=== PATIENT | female | born 1995 | race Caucasian/White ===

== ENCOUNTER 2020-07-26 15:41 | Outpatient (CLI) | payer MEDICAID | END 2020-07-26 15:42 | disposition home or self-care (01) | LOC: LAB 15:41 | PROVIDERS: ATTEND Nurse Practitioner Obstetrics & Gynecology | DX: Z32.02 Encounter for pregnancy test, result negative (principal) | CPT/HCPCS: 36415; 84702 ==

== ENCOUNTER 2020-12-11 15:53 | Outpatient (CLI) | payer MEDICAID ==
--- NOTE | 2020-12-11 16:29 | XRAY Report ---
PROCEDURE: Hand 2 View RT INDICATIONS: HAND JOIN PAIN,RIGHT TECHNIQUE: Tube views of the hand(s) acquired. COMPARISON: None FINDINGS: Bones: No fractures or dislocations. No suspicious bony lesions. Soft tissues: No suspicious soft tissue calcifications. IMPRESSION: Normal study. Reviewed by: Jony Neri MD on 12/11/2020 4:28 PM [facility] Approved by: Jony Neri MD on 12/11/2020 4:28 PM [facility] Station ID: [id number]
== END 2020-12-11 15:54 | disposition home or self-care (01) ==
LOC: DI.S 15:53
PROVIDERS: ATTEND Registered Nurse
DX: M79.641 Pain in right hand (principal)

== ENCOUNTER 2021-02-28 15:18 | Outpatient (CLI) | payer MEDICAID ==
[2021-02-28 20:15] LABS: BASOPHILS # (AUTO) 0.1 10^3/uL (0.0-0.1); BASOPHILS % (AUTO) 0.9 %; EOSINOPHILS # (AUTO) 0.1 10^3/uL (0.0-0.7); EOSINOPHILS % (AUTO) 1.5 %; HGB - HEMOGLOBIN 14.1 g/dL (12.0-16.0); LYMPHOCYTES # (AUTO) 2.7 10^3/uL (1.5-3.5); MEAN CORPUSCULAR HEMOGLOBIN 29.2 pg (27.0-31.0); MEAN CORPUSCULAR HGB CONC 33.6 g/dL (32.0-36.0); MEAN PLATELET VOLUME 10.5 fL (7.9-10.8); MONOCYTES # (AUTO) 0.7 10^3/uL (0.0-1.0); MONOCYTES % (AUTO) 7.8 %; NEUTROPHILS % (AUTO) 58.6 %; PLT - PLATELET COUNT 269 10^3/uL (130-450); RED BLOOD COUNT 4.83 10^6/uL (4.20-5.40); RED CELL DISTRIBUTION WIDTH 12.5 % (12.0-15.0); WHITE BLOOD COUNT 8.5 x10^3/uL (4.8-10.8)
[2021-02-28 20:26] LABS: ALBUMIN 4.7 g/dL (3.2-5.5); ALBUMIN/GLOBULIN RATIO 1.3 (1.0-2.2); BILIRUBIN,TOTAL 0.8 mg/dL (0.2-1.0); CALCIUM 9.6 mg/dL (8.5-10.3); CREATININE 0.9 mg/dL (0.4-1.0); POTASSIUM 3.9 mmol/L (3.5-5.0); TOTAL PROTEIN 8.2 g/dL (6.7-8.2)
[2021-02-28 20:43] LABS: THYROID STIMULATING HORMONE 0.74 uIU/mL (0.34-5.60)
[2021-02-28 21:19] LABS: HCG,QUALITATIVE BLOOD NEGATIVE
== END 2021-02-28 15:19 | disposition home or self-care (01) ==
LOC: LAB.S 15:18
PROVIDERS: ATTEND Advanced Practice Midwife
DX: Z32.01 Encounter for pregnancy test, result positive (principal)
CPT/HCPCS: 36415; 80053; 84443; 84703; 85025

== ENCOUNTER 2021-07-20 08:00 | Outpatient (CLI) | payer MEDICAID ==
[2021-07-20 18:57] LABS: BILIRUBIN,URINE NEGATIVE (NEGATIVE); GLUCOSE, URINE (UA) NEGATIVE (NEGATIVE); KETONES,URINE (UA) NEGATIVE (NEGATIVE); LEUKOCYTE ESTERASE, URINE NEGATIVE (NEGATIVE); NITRITE,URINE NEGATIVE (NEGATIVE); OCCULT BLOOD,URINE NEGATIVE (NEGATIVE); PH,URINE 6.5 PH (5.0-7.5); PROTEIN,URINE NEGATIVE (NEGATIVE); UROBILINOGEN,URINE 0.2 (NORMAL) E.U./dL (NORMAL)
[2021-07-20 19:40] LABS: CLARITY,URINE CLEAR (CLEAR); WBC,URINE 0-3 /HPF (0-5)
[2021-07-20 19:41] LABS: BACTERIA,URINE None Seen /HPF (None Seen); RBC,URINE None Seen /HPF (0-5); SQUAMOUS EPITHELIAL CELL,UR RARE Squamous (<= Few)
[2021-07-20 23:38] LABS: CHLAMYDIA TRACHOMATIS DNA NEGATIVE (NEGATIVE); NEISSERIA GONORRHOEAE DNA NEGATIVE (NEGATIVE); TRICHOMONAS VAGINALIS DNA NEGATIVE (NEGATIVE)
== END 2021-07-20 23:59 | disposition home or self-care (01) ==
LOC: LAB.WC 08:00
PROVIDERS: ATTEND Obstetrics & Gynecology
DX: R10.2 Pelvic and perineal pain (principal)
CPT/HCPCS: 81001; 87086; 87491; 87591; 87661

== ENCOUNTER 2021-08-02 16:00 | Outpatient (CLI) | payer MEDICAID ==
--- NOTE | 2021-08-02 18:14 | Ultrasound Report ---
PROCEDURE: Pelvic w/Transvaginal INDICATIONS: PELVIC PAIN TECHNIQUE: Real-time scanning was performed of the pelvic organs, with image documentation. Additional endovagi nal scanning was necessary due to incomplete visualization of the adnexal and endometrial structures by transabdominal scanning. COMPARISON: None. FINDINGS: No pathologic free abdominal or pelvic fluid. Uterus: Uterus is normal in size at 7.8 x 4.2 x 5.1 cm. The endometrium measures 12 mm in combined thickness. Nabothian cysts are incidentally noted. Ovaries: The right ovary measures 3.2 x 2.5 x 4.2 cm and the left ovary measures 2.9 x 1.9 x 3 cm. W ithin the right ovary, there is a complex cyst seen that measures up to 17 mm. No significant ovarian additional abnormalities are seen. No adnexal masses are seen. IMPRESSION: Complex cyst seen involving the right ovary that measures up to 17 mm, which is likely related to hem orrhagic cyst. If clinically appropriate, please consider a short-term follow-up ultrasound in 6 wee az to ensure resolution/improvement. Reviewed by: Oleg Levy MD on 08/02/2021 5:13 PM [facility] Approved by: Oleg Leyv MD on 08/02/2021 5:13 PM [facility] Station ID: [id number]
== END 2021-08-02 16:01 | disposition home or self-care (01) ==
LOC: DI 16:00
PROVIDERS: ATTEND Obstetrics & Gynecology
DX: R10.2 Pelvic and perineal pain (principal); N83.291 Other ovarian cyst, right side

== ENCOUNTER 2022-05-01 12:31 | Outpatient (CLI) | payer MEDICAID ==
[2022-05-01 14:33] LABS: BASOPHILS % (AUTO) 0.5 %; EOSINOPHILS # (AUTO) 0.1 10^3/uL (0.0-0.7); EOSINOPHILS % (AUTO) 1.4 %; HGB - HEMOGLOBIN 12.8 g/dL (12.0-16.0); LYMPHOCYTES # (AUTO) 1.2 10^3/uL (1.5-3.5); LYMPHOCYTES % (AUTO) 18.8 %; MEAN CORPUSCULAR HEMOGLOBIN 29.4 pg (27.0-31.0); MEAN CORPUSCULAR HGB CONC 33.7 g/dL (32.0-36.0); MEAN CORPUSCULAR VOLUME 87.2 fL (81.0-99.0); MONOCYTES # (AUTO) 0.7 10^3/uL (0.0-1.0); MONOCYTES % (AUTO) 11.1 %; NEUTROPHILS # (AUTO) 4.4 10^3/uL (1.5-6.6); NEUTROPHILS % (AUTO) 67.6 %; PLT - PLATELET COUNT 232 10^3/uL (130-450); RED BLOOD COUNT 4.36 10^6/uL (4.20-5.40); RED CELL DISTRIBUTION WIDTH 13.3 % (12.0-15.0); WHITE BLOOD COUNT 6.5 x10^3/uL (4.8-10.8)
[2022-05-02 03:08] LABS: RPR Non Reactive (Non Reactive)
[2022-05-02 04:08] LABS: HBsAG SCREEN Negative (Negative); HCV AB <0.1 s/co ratio (0.0-0.9); HIV SCREEN 4TH GENERATION Non Reactive (Non Reactive)
[2022-05-02 07:10] LABS: VARICELLA-ZOSTER AB IGG 378 index (Immune >165)
== END 2022-05-01 12:32 | disposition home or self-care (01) ==
LOC: LAB.S 12:31
PROVIDERS: ATTEND Nurse Practitioner Obstetrics & Gynecology
DX: Z36.89 Encounter for other specified antenatal screening (principal)
CPT/HCPCS: 36415; 85025; 86592; 86762; 86787; 86803; 86850; 86900; 86901; 87340; 87389

== ENCOUNTER 2022-07-02 15:44 | Outpatient (CLI) | payer MEDICAID ==
--- NOTE | 2022-07-03 10:24 | Ultrasound Report ---
PROCEDURE: OB Detailed Eval INDICATIONS: SUPERVISION OF OUTSIDE/PRIOR DATING DATA: Last menstrual period (LMP): 02/14/2021. LMP-based estimated date of delivery (FREDY): To 923. First dating scan (date and location): Outside institution, 04/23/2022. Estimated date of delivery (FREDY) from first dating scan: 11/25/2022. The below data below was generated using the first trimester ultrasound FREDY of 11/25/2022 TECHNIQUE: Real-time scanning was performed of the fetus, with image documentation and biometric measurements. Endovaginal scanning: Not performed COMPARISON: None. FINDINGS: General: A single living intrauterine gestation is present. Presentation: Vertex Placenta: Placental position is anterior, without previa. Amniotic fluid index: 11.7 cm, deepest pocket is 3.3 cm, normal for gestational age. heart rate: 138 beats per minute. Maternal cervical canal: Closed and 4.3 cm long; normal length is 2.5 cm or more. biometrics: Biparietal diameter: 4.5 cm, 19 weeks, 5 days Head circumference: 17.0 cm, 19 weeks, 4 days Abdominal circumference: 14.2 cm, 19 weeks, 4 days Femur length: 3.1 cm, 19 weeks, 4 days Estimated gestational age from initial scan: 19 weeks, 1 day Composite gestational age from present scan: 19 weeks, 4 days Estimated weight and percentile: 300 g, 71st percentile Measurement variability in biometric dating: +/- 10 days from 12-20 weeks gestation, +/- 2 weeks from 20-30 weeks gestation, +/- 3 weeks at 30 weeks gestation or later. Anatomic survey: Neuro: Ventricles are normal at less than 10 mm. Cisterna magna is normal at 3-11 mm. Cerebellum i s normal in size and morphology. Nuchal skin fold: Normal at less than 6 mm between 14 and 20 weeks gestational age. Face: The orbits, nose, and lips appear normal. The facial profile was not seen due to position . Spine: No evidence for spina bifida. Heart: 4-chambered heart is present. Cardiac outflow tracts were not well seen. Diaphragm: Diaphragm is intact. Stomach: Left-sided stomach is present. Kidneys: No hydronephrosis. Normal is less than 5 mm in 2nd trimester, less than 7 mm in 3rd trimester. Cord: 3 vessel cord has orthotopic insertion. Bladder: Normal in size. Extremities: All 4 extremities are visualized. IMPRESSION: 1. Single living intrauterine with appropriate growth compared to the expected gestational age. 2. Closed cervix and normal amniotic fluid volume. 3. Due to position, facial profile and cardiac outflow tracts were not well seen. Follow-up is recommended. Otherwise normal anatomy. Reviewed by: Indu Freeman MD on 07/03/2022 10:23 AM PDT Approved by: Indu Freeman MD on 07/03/2022 10:23 AM PDT Station ID: [id number]
== END 2022-07-02 15:45 | disposition home or self-care (01) ==
LOC: DI 15:44
PROVIDERS: ATTEND Nurse Practitioner Obstetrics & Gynecology
DX: Z34.02 Encounter for supervision of normal first pregnancy, second trimester (principal); Z36.89 Encounter for other specified antenatal screening

== ENCOUNTER 2022-07-17 13:26 | Outpatient (CLI) | payer MEDICAID ==
--- NOTE | 2022-07-17 16:38 | Ultrasound Report ---
PROCEDURE: OB F/U or Repeat INDICATIONS: SUPERVISION OF OUTSIDE/PRIOR DATING DATA: Last menstrual period (LMP): 02/14/2022. LMP-based estimated date of delivery (FREDY): 11/21/2022. First dating scan (date and location): 07/02/2022. Estimated date of delivery (FREDY) from first dating scan: 11/25/2022. The below data below was generated using the ultrasound FREDY of 11/25/2022 TECHNIQUE: Real-time scanning was performed of the fetus, with image documentation. Endovaginal scanning: Not performed. COMPARISON: OB ultrasound 07/02/2022 FINDINGS: General: A single living intrauterine gestation is present. Presentation: Breech Placenta: Placental position is anterior, without previa. Amniotic fluid index: 15.8 cm, normal for gestational age. Single deepest vertical fluid pocket is 4.6 cm. heart rate: 137 beats per minute. Maternal cervical canal: 4.6 cm long; normal length is 2.5 cm or more. Estimated gestational age from initial scan: 21 weeks 2 days. Other: facial profile as well as right and left ventricular outflow tracks are visualized and a re within normal limits. IMPRESSION: 1.Single live intrauterine . 2.Right and left ventricular outflow tracts and facial profile are within normal limits. 3.Amniotic fluid index is within normal limits. Reviewed by: Jonathan Lundberg MD on 07/17/2022 4:37 PM PDT Approved by: Jonathan Lundberg MD on 07/17/2022 4:37 PM PDT Station ID: [id number]
== END 2022-07-17 13:27 | disposition home or self-care (01) ==
LOC: DI 13:26
PROVIDERS: ATTEND Nurse Practitioner Obstetrics & Gynecology
DX: Z36.89 Encounter for other specified antenatal screening (principal)

== ENCOUNTER 2022-08-08 15:05 | Outpatient (CLI) | payer MEDICAID ==
[2022-08-08 16:15] LABS: HCT - HEMATOCRIT 33.2 % (37.0-47.0); HGB - HEMOGLOBIN 10.7 g/dL (12.0-16.0); MEAN CORPUSCULAR HGB CONC 32.2 g/dL (32.0-36.0); MEAN PLATELET VOLUME 9.5 fL (7.9-10.8); RED BLOOD COUNT 3.69 10^6/uL (4.20-5.40); RED CELL DISTRIBUTION WIDTH 12.7 % (12.0-15.0); WHITE BLOOD COUNT 11.1 x10^3/uL (4.8-10.8)
== END 2022-08-08 15:06 | disposition home or self-care (01) ==
LOC: LAB 15:05
PROVIDERS: ATTEND Nurse Practitioner Obstetrics & Gynecology
DX: Z36.9 Encounter for antenatal screening, unspecified (principal)
CPT/HCPCS: 36415; 82950; 85027

== ENCOUNTER 2022-09-25 22:17 | Outpatient (CLI) | payer MEDICAID ==
[2022-09-25 22:48] VITALS: BP 105/55
[2022-09-25 23:34] LABS: BILIRUBIN,URINE NEGATIVE (NEGATIVE); GLUCOSE, URINE (UA) NEGATIVE (NEGATIVE); KETONES,URINE (UA) NEGATIVE (NEGATIVE); LEUKOCYTE ESTERASE, URINE NEGATIVE (NEGATIVE); NITRITE,URINE NEGATIVE (NEGATIVE); OCCULT BLOOD,URINE NEGATIVE (NEGATIVE); PH,URINE 6.5 PH (5.0-7.5); PROTEIN,URINE NEGATIVE (NEGATIVE); UROBILINOGEN,URINE 0.2 (NORMAL) E.U./dL (NORMAL)
[2022-09-25 23:37] LABS: CLARITY,URINE CLEAR (CLEAR)
[2022-09-25 23:39] LABS: BACTERIA,URINE Rare /HPF (None Seen); RBC,URINE 0-5 /HPF (0-5); SQUAMOUS EPITHELIAL CELL,UR RARE Squamous (<= Few); WBC,URINE 0-3 /HPF (0-5)
[2022-09-25] MEDS ORDERED: ACETAMINOPHEN 500 MG TABLET PO SCH (23:45)
--- NOTE | 2022-09-27 18:25 | PROVIDER PROGRESS NOTE ---
- HPI Chief Complaint: Pain, non-labor Current : Current EDU 11/21/22 Gestation 31 Weeks and 6 Days 2 Para 0 Vital Signs Temperature 36.8 C 09/25/22 22:44 Heart Rate 88 09/25/22 22:44 Respiratory Rate 18 09/25/22 22:44 Blood Pressure 105/55 L 09/25/22 22:44 Temperature 36.8 C 09/25/22 22:44 Heart Rate 88 09/25/22 22:44 Respiratory Rate 18 09/25/22 22:44 Blood Pressure 105/55 L 09/25/22 22:44 O2 Saturation If not protocol: Oxygen Flow, liters/minute - Procedures OB Procedure Performed: NST Diagnosis/Indication for NST: Other NST Procedure: NST Procedure Start Date 09/25/22 Start Time 22:29 Stop Time 23:00 Vibroacoustic Stimulation Used No Patient States Movement Yes - Plan Plan: Kirsten presents today with c/o sharp abdominal pain every 4 minutes lasting 3 minutes at a time. She states the pain is in various places over her abdomen but is mostly localized over her pubic bone. She denies vaginal bleeding or leakage of fluid and reports +FM. She denies that her abdomen feels tightened when the pain occurs. She reports normal BMs and denies constipation or diarrhea. She denies any additions to her diet or eating anything new. She denies urinary symptoms. She denies abnormal vaignal discharge. NST performed 09/25/2022 NST read 09/25/2022 NST reactive. FHR baselin 140s, moderate variability, + accels, no decels No contractions appreciated via tocometry Uterus palpated with appreciated pain and remains soft throughout. Noted movement audible on monitor when pt appreciates pain. UA collected- negative Encouraged 1000mg tylenol PO q 8 hrs as needed for pain. Recommended maternity support belt. Reviewed warning s/sx and when to present. Pt verbalized understanding and agrees to above plan. SHe denies further questions or concerns at this time. Pt was discharged home with precautions. FINAL DIAGNOSIS: Pelvic pain (10.2)
== END 2022-09-25 23:58 | disposition home or self-care (01) ==
LOC: WFO 22:17 → FBP 22:21 → WFO 23:58
PROVIDERS: ATTEND Nurse Practitioner Obstetrics & Gynecology
DX: O99.891 Other specified diseases and conditions complicating pregnancy (principal); R10.2 Pelvic and perineal pain; Z3A.31 31 weeks gestation of pregnancy
CPT/HCPCS: 59025; 81001; 99214; A9270; 87086

== ENCOUNTER 2022-09-30 16:01 | Outpatient (CLI) | payer MEDICAID ==
--- NOTE | 2022-10-01 10:00 | Ultrasound Report ---
PROCEDURE: OB F/U or Repeat INDICATIONS: UTERINE SIZE DATE DISCREPANCY OUTSIDE/PRIOR DATING DATA: Last menstrual period (LMP): 02/14/2022. LMP-based estimated date of delivery (FREDY): 11/21/2022. First dating scan (date and location): 07/02/2022. Estimated date of delivery (FREDY) from first dating scan: 11/25/2022. The below data below was generated using the ultrasound FREDY of 11/25/2022 TECHNIQUE: Real-time scanning was performed of the fetus, with image documentation and biometric measurements. Endovaginal scanning: Not performed. COMPARISON: OB ultrasound 07/17/2022 FINDINGS: General: A single living intrauterine gestation is present. Presentation: Vertex Placenta: Placental position is anterior, without previa. Amniotic fluid index: 13.5 cm, normal for gestational age. Single deepest vertical fluid pocket is 4.8 cm. heart rate: 135 beats per minute. Maternal cervical canal: 3.2 cm long; normal length is 2.5 cm or more. biometrics: Biparietal diameter: 8.2 cm, 33 weeks 0 days Head circumference: 30.8 cm, 34 weeks 2 days Abdominal circumference: 26.9 cm, 31 weeks 0 days Femur length: 6.0 cm, 31 weeks 2 days Estimated gestational age from initial scan: 32 weeks 0 days Composite gestational age from present scan: 32 weeks 3 days Estimated weight and percentile: 1792 g, 26th percentile for gestational age Measurement variability in biometric dating: +/- 10 days from 12-20 weeks gestation, +/- 2 weeks from 20-30 weeks gestation, +/- 3 weeks at 30 weeks gestation or more. Other: Not applicable. IMPRESSION: 1.Single live intrauterine with appropriate interval growth. 2.Estimated weight is 1792 g, 26th percentile for gestational age. 3.Amniotic fluid index is within normal limits. Reviewed by: Jonathan Lundberg MD on 10/01/2022 9:58 AM PST Approved by: Jonathan Lundberg MD on 10/01/2022 9:58 AM PST Station ID: [id number]
== END 2022-09-30 16:02 | disposition home or self-care (01) ==
LOC: DI 16:01
PROVIDERS: ATTEND Nurse Practitioner Obstetrics & Gynecology
DX: O26.843 Uterine size-date discrepancy, third trimester (principal); Z3A.32 32 weeks gestation of pregnancy

== ENCOUNTER 2022-10-09 14:48 | Outpatient (CLI) | payer MEDICAID ==
[2022-10-09 15:03] LABS: BASOPHILS % (AUTO) 0.3 %; EOSINOPHILS # (AUTO) 0.1 10^3/uL (0.0-0.7); EOSINOPHILS % (AUTO) 0.5 %; HCT - HEMATOCRIT 36.4 % (37.0-47.0); HGB - HEMOGLOBIN 11.7 g/dL (12.0-16.0); LYMPHOCYTES # (AUTO) 2.1 10^3/uL (1.5-3.5); LYMPHOCYTES % (AUTO) 18.7 %; MEAN CORPUSCULAR HEMOGLOBIN 28.6 pg (27.0-31.0); MEAN CORPUSCULAR HGB CONC 32.1 g/dL (32.0-36.0); MEAN PLATELET VOLUME 9.2 fL (7.9-10.8); MONOCYTES # (AUTO) 0.8 10^3/uL (0.0-1.0); MONOCYTES % (AUTO) 6.8 %; NEUTROPHILS # (AUTO) 8.1 10^3/uL (1.5-6.6); NEUTROPHILS % (AUTO) 72.4 %; PLT - PLATELET COUNT 219 10^3/uL (130-450); RED BLOOD COUNT 4.09 10^6/uL (4.20-5.40); RED CELL DISTRIBUTION WIDTH 13.5 % (12.0-15.0); WHITE BLOOD COUNT 11.2 x10^3/uL (4.8-10.8)
== END 2022-10-09 14:49 | disposition home or self-care (01) ==
LOC: LAB 14:48
PROVIDERS: ATTEND Nurse Practitioner Obstetrics & Gynecology
DX: O99.013 Anemia complicating pregnancy, third trimester (principal)
CPT/HCPCS: 36415; 85025

== ENCOUNTER 2022-11-28 19:03 | Inpatient (IN) | payer MEDICAID ==
[2022-11-28] MEDS ORDERED: CARBOPROST TROMETHAMINE 250 MCG/ML AMP IM PRN (19:56)
[2022-11-28] MEDS ORDERED: miSOPROStoL 200 MCG TABLET BC PRN (19:56)
[2022-11-28] MEDS ORDERED: TRANEXAMIC ACID IN NACL 1,000 MG/100 ML BAG IV PRN (19:56)
[2022-11-28] MEDS ORDERED: OXYTOCIN 10 UNIT/ML VIAL IM PRN (19:56)
[2022-11-28] MEDS ORDERED: SODIUM CHLORIDE FLUSH 0.9% 10 ML SYRINGE IVP PRN (19:56)
[2022-11-28] MEDS ORDERED: METHYLERGONOVINE 0.2 MG/ML VIAL IM PRN (19:56)
[2022-11-28] MEDS ORDERED: lidocaine 1% 20 ML MDV ID PRN (19:56)
[2022-11-28] MEDS ORDERED: OXYTOCIN/SODIUM CHLORIDE 500 ML IV SCH (20:00)
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
[2022-11-28] MEDS: LACTATED RINGERS 1,000 ML IV SCH (21:37)
[2022-11-29] MEDS ORDERED: SODIUM CHLORIDE FLUSH 0.9% 10 ML SYRINGE IVP SCH (01:00)
[2022-11-29 03:38] LABS: BASOPHILS # (AUTO) 0.1 10^3/uL (0.0-0.1); BASOPHILS % (AUTO) 0.5 %; EOSINOPHILS # (AUTO) 0.1 10^3/uL (0.0-0.7); EOSINOPHILS % (AUTO) 0.6 %; HCT - HEMATOCRIT 39.4 % (37.0-47.0); HGB - HEMOGLOBIN 12.6 g/dL (12.0-16.0); LYMPHOCYTES # (AUTO) 2.5 10^3/uL (1.5-3.5); LYMPHOCYTES % (AUTO) 20.4 %; MEAN CORPUSCULAR HEMOGLOBIN 28.4 pg (27.0-31.0); MEAN CORPUSCULAR VOLUME 88.9 fL (81.0-99.0); MEAN PLATELET VOLUME 9.7 fL (7.9-10.8); MONOCYTES # (AUTO) 1.2 10^3/uL (0.0-1.0); MONOCYTES % (AUTO) 9.3 %; NEUTROPHILS # (AUTO) 8.3 10^3/uL (1.5-6.6); NEUTROPHILS % (AUTO) 67.3 %; PLT - PLATELET COUNT 220 10^3/uL (130-450); RED BLOOD COUNT 4.43 10^6/uL (4.20-5.40); WHITE BLOOD COUNT 12.4 x10^3/uL (4.8-10.8)
[2022-11-29] MEDS ORDERED: ROPIVACAINE 0.2% 200 MG/100 ML BAG EP ONE (04:09)
[2022-11-29] MEDS ORDERED: ePHEDrine 50 MG/ML VIAL IVP PRN (05:30)
[2022-11-29] MEDS ORDERED: NALOXONE 0.4 MG/ML VIAL IVP PRN (05:30)
[2022-11-29] MEDS ORDERED: ONDANSETRON 4 MG/2 ML VIAL IVP PRN (05:30)
[2022-11-29] MEDS ORDERED: ROPIVACAINE 0.2% 200 MG/100 ML BAG EP PRN (05:30)
[2022-11-29] MEDS ORDERED: NALBUPHINE 10 MG/ML AMP IVP PRN (05:30)
[2022-11-29] MEDS ORDERED: diphenhydrAMINE INJ 50 MG/ML VIAL IVP PRN (05:30)
--- NOTE | 2022-11-29 05:36 | ANESTHESIA ---
Pre-Anesthesia VS, & Labs - Diagnosis active labor - Procedure labor epidural Vital Signs: Temp Pulse Resp BP Pulse Ox O2 Flow Rate 36.8 C 98 18 114/83 H 11/28/22 20:07 11/28/22 20:07 11/28/22 20:07 11/28/22 20:07 Height: 5 ft 7 in Weight (kg): 127.006 kg Body Mass Index: 43.8 BMI Classification: Morbidly Obese - NPO >8 hours - Is Patient ?: Yes - Lab Results Current Lab Results: Laboratory Tests 11/29/22 03:33: WBC 12.4 H, RBC 4.43, Hgb 12.6, Hct 39.4, MCV 88.9, MCH 28.4, MCHC 32.0, RDW 14.0, Plt Count 220, MPV 9.7, Neut # (Auto) 8.3 H, Lymph # (Auto) 2.5, Borden # (Auto) 1.2 H, Eos # (Auto) 0.1, Baso # (Auto) 0.1, Absolute Nucleated RBC 0.00, Nucleated RBC % 0.0 Fish Bones: 11/29/22 03:33 Home Medications and Allergies Active Medications Carboprost Tromethamine (Carboprost Tromethamine 250 Mcg/Ml Amp) 250 mcg IM Q15M PRN PRN Reason: Step 4: Hemorrhage protocol Stop: 12/03/22 19:56 Oxytocin/Sodium Chloride (Pitocin/Sodium Chloride) 500 mls @ 999 mls/hr IV PRN PRN; Protocol PRN Reason: POST- HEMORR PREVENTION Stop: 12/03/22 19:56 Tranexamic Acid (Tranexamic 1,000 Mg/100ml-Nacl) 1,000 mg in 100 mls @ 600 ml s/hr IV .ONCE PRN PRN Reason: EBL >1200mL and within 3hr Stop: 12/03/22 19:56 Lactated Ringer's (Lr) 1,000 mls @ 100 mls/hr IV .Q10H MARYCARMEN Last Admin: 11/28/22 21:37 Dose: 100 mls/hr Oxytocin/Sodium Chloride (Pitocin/Sodium Chloride) 500 mls @ 2 mls/hr IV TITR MARYCARMEN; Protocol Last Admin: 11/28/22 21:38 Dose: 2 milliunit/min, 2 mls/hr Lidocaine HCl (Lidocaine 1% 20 Ml Mdv) 20 ml ID .ONCE PRN PRN Reason: PERINEAL REPAIR Stop: 12/03/22 19:56 Methylergonovine Maleate (Methylergonovine 0.2 Mg/Ml Vial) 0.2 mg IM .ONCE PRN PRN Reason: Step 2: Hemorrhage protocol Stop: 12/03/22 19:56 Misoprostol (Misoprostol 200 Mcg Tablet) 800 mcg BC .ONCE PRN PRN Reason: Step 3: Hemorrhage protocol Stop: 12/03/22 19:56 Ondansetron HCl (Ondansetron 4 Mg/2 Ml Vial) 4 mg IVP Q4HR PRN PRN Reason: Nausea / Vomiting Oxytocin (Oxytocin 10 Unit/Ml Vial) 10 unit IM .ONCE PRN PRN Reason: Step one: If no IV access Stop: 12/03/22 19:56 Sodium Chloride (Sodium Chloride Flush 0.9% 10 Ml Syringe) 10 ml IVP 0100,0900,1700 MARYCARMEN Sodium Chloride (Sodium Chloride Flush 0.9% 10 Ml Syringe) 10 ml IVP PRN PRN PRN Reason: NEEDED PER PROVIDER ORDERS Pantoprazole Sodium 20 mg PO DAILY 05/22/22 Allergies/Adverse Reactions: Allergies Allergy/AdvReac Type Severity Reaction Status Date / Time dextromethorphan Allergy Hives Verified 05/22/22 09:44 [From NyQuil] doxylamine [From NyQuil] Allergy Hives Verified 05/22/22 09:44 menthol Allergy Rash Verified 05/22/22 09:44 pseudoephedrine Allergy Hives Verified 05/22/22 09:44 [From DayQuil Sinus Pressure/Pain] Anes History & Medical History - Anesthetic History Anesthesia Complications: reports: No previous complications Family history of Anesthesia Complications: Denies Family history of Malignant Hyperthermia: Denies - Medical History Cardiovascular: reports: None Pulmonary: reports: None Gastrointestinal: reports: GERD, Hiatal hernia Neuro: reports: Other (autistic) Endocrine/Autoimmune: reports: None Smoking Status: Never smoker Psychosocial: reports: No issues indicated - Obstetrical History : 2 Parity: 1 Events: reports: None Complications: reports: None Exam General: Alert, Oriented x3, Cooperative Dental: WNL Mouth Openin Fingerbreadth Neck Mobility: Normal Mallampati classification: II Thyromental Distance: 4-6 cm Respiratory: Lungs clear Cardiovascular: Regular rate Plan Anesthesia Type: Epidural Consent for Procedure(s) Verified and Reviewed: Yes Code Status: Attempt Resuscitation ASA classification: 3-Severe systemic disease Is this case an emergency?: No
[2022-11-29] MEDS ORDERED: LIDOCAINE-PF 2% 10 ML AMP SUBQ ONE (05:57)
[2022-11-29] MEDS ORDERED: SODIUM CHLORIDE 0.9% 10 ML VIAL IVP ONE (05:59)
[2022-11-29] MEDS: LACTATED RINGERS 1,000 ML IV SCH ×3 (06:33→15:52)
[2022-11-29] MEDS ORDERED: LIDOCAINE-MPF 2% 5 ML VIAL ONE (07:31)
[2022-11-29] MEDS ORDERED: fentaNYL 100 MCG/2 ML VIAL ONE (07:31)
[2022-11-29] MEDS ORDERED: SIMETHICONE CHEW 80 MG TABLET PO PRN (07:36)
--- NOTE | 2022-11-29 10:19 | PROVIDER PROGRESS NOTE ---
Labor Progress Note - Uterine Monitoring Uterine Monitoring Mode: positive: External toco Contraction Intensity: positive: Mild to moderate Uterine Resting Tone: positive: Soft - Monitoring Monitor Mode: positive: External ultrasound Heart Rate Baseline: 135 Heart Rate Variability: positive: Moderate (6-25 bmp) Accelerations: positive: Present, 15x15 Decelerations: positive: None Strip Review: positive: Category I - Vaginal Exam Dilation (in cm): 4 Effacement (%): 80 Station: -3 Cervical Position: Posterior - Labor Progress Note Labor Progress Note/Additional Text: S: Patient very uncomfortable and crying with contractions. She was initially getting relief from her epidural and is not getting relief any longer. Anesthesia has been consulted and requested at the bedside for management. Her partner mercedez is supportive at the bedside. She denies feeling any leakage of fluid. O: FHR baseline 140s, moderate variability, +accels, no decels Contractions palpate mild to moderate every 3-5 minutes with soft resting tone SVE 4/80/-3, posteiror and vertex with intact membranes. Pitocin @ 8mU/mL. A: 27yo @ 41.1wks gestation Postdates GBS neg FHR Category I P: Continue pitocin induction of labor with titration per protocol Consider AROM with next SVE. Continuous monitoring. Maintain epidural for pain management. Anticipate .
[2022-11-29] MEDS: ONDANSETRON 4 MG/2 ML VIAL IVP PRN ×3 (10:30→19:00)
--- NOTE | 2022-11-29 14:20 | PROVIDER PROGRESS NOTE ---
Labor Progress Note - Uterine Monitoring Uterine Monitoring Mode: positive: External toco Contraction Intensity: positive: Moderate Uterine Resting Tone: positive: Soft - Monitoring Monitor Mode: positive: External ultrasound Heart Rate Baseline: 130 Heart Rate Variability: positive: Moderate (6-25 bmp) Accelerations: positive: Present, 15x15 Decelerations: positive: None Strip Review: positive: Category I - Vaginal Exam Dilation (in cm): 7 Effacement (%): 100 Station: -1 Cervical Position: Midposition - Labor Progress Note Labor Progress Note/Additional Text: S: Feeling significantly improved following replacement of her epidural. She has been able to get some sleep and is resting in bed with her family visiting her in the room. She states she feels occasionally increased vaginal pressure that is brief and not with every contraction. O: FHR baseline 130s, moderate variability, + accels, no decels Contractions palpate moderate every 3-5 minutes with soft resting tone SVE 7/100/-1, midposition, vertex. Thick meconium Pitocin @ 9mU/mL A: 27yo @ 41.1wks gestation Postdates GBS neg FHR Category I P: Continue induction of labor with titration of pitocin per protocol. Continuous monitoring. Maintain epidural for pain management. Encouraged rotation in bed on peanut ball. Anticipate .
[2022-11-29] MEDS: OXYTOCIN/SODIUM CHLORIDE 500 ML IV PRN ×2 (18:47→19:54)
[2022-11-29] MEDS ORDERED: WITCH HAZEL/GLYCERIN 1 PAD TOP PRN (19:02)
[2022-11-29] MEDS ORDERED: HYDROCORTISONE 1% CREAM 28 GM TUBE PR PRN (19:02)
--- NOTE | 2022-11-29 19:02 | DELIVERY NOTE ---
Delivery Note - Labor Labor: positive: Augmented by ARM, Induced by oxytocin - Delivery Method Infant Delivery Method: positive: Spontaneous vaginal delivery - Presentation Presentation: positive: Vertex, LOP - left occiput posterior - Nuchal Cord Nuchal Cord: positive: None - Episiotomy Type Episiotomy Type: positive: None - Laceration Laceration: positive: None - Delivery Outcome Delivery Outcome: positive: Livebirth - [place]: positive: Suctioned, Bulb syringe, Stimulated, Warmed, [place] used, Warmer used [place] sex: positive: Female - Cord Cord: positive: 3 vessels - Placenta Placenta: positive: Intact, Spontaneous - Estimated Blood Loss Estimated Blood Loss (in cc): 250 - Post Delivery Events Post Delivery Events: positive: No post delivery events - Delivery Comments (Free Text/Narrative) Delivery Comments (Free Text/Narrative): Labor: This 27yo @ 41.1wks gestation by LMP who presented on 11/28/2022 for medical induction of labor secondary to postdates . She was noted to be 4/80/-3, posterior and vertex with intact membranes. Pitocin was initiated via IV for induction of labor with a maximum infusion rate of 9mU/mL. Epidural placed per maternal request and required replacement x once secondary to cessation of pain relief. FHR pattern demonstrated Category I pattern followed by Category II pattern through active labor however overall remained reassuring. AROM occurred at 1023 and was noted to be a moderate amount of thick meconium stained amniotic fluid. Pt progressed to c/c/0 and pushing at 1710. The impersonator character pediatric provider was notified for presence during delivery secondary to recurrent late decelerations with pushing and thick meconium. : Normal SVB of viable female infant on 11/29/2022 @ 1844 in LOP position. No nuchal cord. The was placed on maternal abdomen, stimulated, dried. The umbilical cord was doubly clamped and cut by CNM and was moved to warmer for assessment per pediatric provider request. 's were __ and __ at 1 and 5 minutes respectively. Pitocin administered via IV for hemostasis. 3VC. Cord blood was obtained. Fundal massage and gentle cord traction applied for active management of the third stage. Placenta delivered spontaneously and intact at 1847. EBL 250mL. Fourth stage: Uterine fundus firm and there is no excessive bleeding. The perineum, vagina, and cervix were inspected and noted to be intact. There was a left labial superficial area of separation which was hemostatic and left unrepaired. Skin to skin contact initiated. Family bonding well. Both mother and baby were left in stable condition.
[2022-11-29] MEDS ORDERED: IBUPROFEN 800 MG TABLET PO SCH (20:00)
[2022-11-29] MEDS: ACETAMINOPHEN 500 MG TABLET PO SCH (20:28)
[2022-11-29] MEDS: DOCUSATE SODIUM 100 MG CAPSULE PO SCH (21:41)
[2022-11-30] MEDS: ACETAMINOPHEN 500 MG TABLET PO SCH ×2 (04:43→15:41)
[2022-11-30] MEDS: DOCUSATE SODIUM 100 MG CAPSULE PO SCH (15:41)
[2022-11-30] MEDS ORDERED: HYDROcod/ACETAM 5/325 MG TABLET PO PRN (23:32)
--- NOTE | 2022-11-30 23:55 | PROVIDER PROGRESS NOTE ---
Subjective - Subjective Subjective: S: Bonding well with baby. without difficulty. Bleeding decreased and is light. Pain well controlled with oral medications. She is ambulating and tolerating a regular diet. She has had 1 normal bowel movement without pain. She is urinating without difficulty. Her mood is good. Her partner is supportive at the bedside. O: Heart RRR w/o M/G/R, lungs CTAB, abdomen gravid, soft, nontender, perineum intact with mild edema, light lochia rubra. Bilateral LE's no edema. A: 27yo -->P1 PPD#1 s/p TSVD viable female Perineum intact P: Continue routine pp care and medications. Evaluate for discharge home tomorrow. Objective - Vital Signs/Intake & Output Vital Signs: Vital Signs x48h Temp Pulse Resp BP Pulse Ox 11/30/22 20:30 97.7 C H 78 16 111/66 100 11/30/22 18:00 37.0 C 82 18 121/68 100 Intake & Output: Intake & Output 11/27/22 11/28/22 11/29/22 11/30/22 23:59 23:59 23:59 23:59 Intake Total 500 3139.999 460 Output Total 1143 1002 Balance 500 1996.999 -542 - Lab Results Fish Bones: 11/29/22 03:33
[2022-12-01] MEDS: DOCUSATE SODIUM 100 MG CAPSULE PO SCH ×2 (00:07→08:15)
--- NOTE | 2022-12-01 00:13 | PROVIDER PROGRESS NOTE ---
Subjective - Subjective Subjective: S: Called to the bedside secondary to patient describing increased vaginal with occasional rectal pressure with position changes. Her bleeding is light. She rates her pain 6/10. Reports it seems well controlled when she is laying down and once she gets to a sitting position the counter pressure seems to relieve the discomfort. She states standing positions and walking seems to increase the intensity of the discomfort. She was initially using perineal ice packs but has not been doing that for the past 12 hours. Bleeding is minimal lochia rubra. She reports 2 normal, soft BMs without need to strain since delivery. She denies pain with bowel movements. She has been taking tylenol 1000mg every 8 hours and has declined ibuprofen secondary to stomach upset despite encouragement to take with food to decrease this. O: SVE reveals mild edema to external tissues without discoloration or bruising. External palpation reveals uniformly soft tissue throughout without evidence of external visible hematoma or palpable hematoma externally. Internal examination reveals uniformly pink, ruggated tissue throughout. No evidence of discoloration or bruising. Small, approximately 3cm, clot in external vaginal vault removed. Vaginal bleeding minimal. Internal palpation reveals uniformly soft tissue throughout without specific areas of tenderness or increased pressure. No evidence of firm tissue or palpable hematoma internally. Pt tolerated examination well. A: 27yo -->P1 PPD#2 s/p TSVB viable female infant Perineum intact P: Add [place] 5/325 q 8hrs. Continue perineal ice packs. Discouraged directly sitting on perineum and encouraged slight tilt and/or d oughnut pillow. Continue routine pp care. Revaluate affected area at 0900am or sooner if needed. Objective - Vital Signs/Intake & Output Vital Signs: Vital Signs x48h Temp Pulse Resp BP Pulse Ox O2 Flow Rate 11/30/22 23:53 79 16 112/65 97 0 11/30/22 20:30 97.7 C H 78 16 111/66 100 11/30/22 18:00 37.0 C 82 18 121/68 100 Intake & Output: Intake & Output 11/27/22 11/28/22 11/29/22 11/30/22 23:59 23:59 23:59 23:59 Intake Total 500 3139.999 460 Output Total 1143 1002 Balance 500 3373.999 -852 - Lab Results Fish Bones: 11/29/22 03:33
[2022-12-01] MEDS ORDERED: HYDROcod/ACETAM 5/325 MG TABLET PO PRN (00:42)
[2022-12-01] MEDS: ACETAMINOPHEN 500 MG TABLET PO SCH (08:15)
[2022-12-01 09:16] VITALS: BP 118/72
--- NOTE | 2022-12-01 11:13 | Discharge Plan ---
Discharge Plan Problem Reviewed?: Yes Disposition: Home, Self Care Condition: Good Diet: Regular Activity Restrictions: No Restrictions Shower Restrictions: No Driving Restrictions: No Weight Bearing: Full Weight Instruction Topics: Vaginal After No Smoking: If you smoke, Please STOP! Call for help. Follow-up with: Trish Jacobson CNM, ARNP [Provider Admit Priv/Credential] - 1 Week (December 13 @ 3:45 - phone visit)
--- NOTE | 2022-12-01 11:24 | DISCHARGE SUMMARY ---
Discharge Summary Condition at Discharge: Good Discharge Disposition: 01 Home, Self Care - HOSPITAL COURSE Hospital Course: Date of Admission: 11/28/2022 Date of Discharge: 12/01/2022 Diagnosis on Admission: 1. 27yo @ 41.0wks gestation by LMP c/w 9.1wk U/S 2. Postdates 3. FHR Category I 4. Postdates Diagnosis on Discharge: 1. 27yo PPD#2 s/p TSVB viable female infant 2. 3. Normal recovery Brief History: She is a patient of [facility] who presented on 11/28/2022 for medical induction of labor secondary to postdates . Cervix was 4/80/-3, posterior and vertex. She received pitocin via IV for induction of labor for a maximum infusion rate of 9mU/mL. AROM from labor augmentation revealed a moderate amount of thick meconium stained amniotic fluid. Mill Representative notified and present for delivery. She progressed to deliver a viable female on 11/29/2022 @ 1844 over intact perineum. Apgars were 8 /9 at 1 and 5 minutes respectively. EBL 250mL. She has been doing well in her course. She is ambulating and tolerating a regular diet. She is urinating without difficulty and her lochia is normal. Her pain is well controlled with oral medications. She is without difficulty. She had 2 normal BMs since delivery without pain. She was evaluated 24 hours ago with concerns for rectal and vaginal pressure and a hematoma was ruled out. Her pain has improved since that time and she states it feels well controlled now. She will be discharged home today on day #2 with instructions to continue taking her vitamin while and to continue taking ibuprofen and tylenol over the counter as needed for pain management. She intends to follow up with myself at [facility] in 1 week for routine visit or sooner if needed. She has been given precautions to call if she has any worsening fevers, chills, abdominal pain, increased vaginal bleeding or foul smelling vaginal lochia. Physical Exam: Normocephalic, atraumatic. Heart RRR w/o M/G/R. Lungs CTAB. Abdomen soft and nontender with fundus firm at U-2. Perineum intact w/o edema, light lochia rubra. Bilateral LE's trace edema. Mood is good. Partner Beny supportive at the bedside. - ALLERGIES Allergies/Adverse Reactions: Allergies Allergy/AdvReac Type Severity Reaction Status Date / Time dextromethorphan Allergy Hives Verified 05/22/22 09:44 [From NyQuil] doxylamine [From NyQuil] Allergy Hives Verified 05/22/22 09:44 menthol Allergy Rash Verified 05/22/22 09:44 pseudoephedrine Allergy Hives Verified 05/22/22 09:44 [From DayQuil Sinus Pressure/Pain] - MEDICATIONS Home Medications: Ambulatory Orders Medication Instructions Recorded Confirmed Pantoprazole Sodium 20 mg PO DAILY 05/22/22 05/22/22 - LABS Result Diagrams: 11/29/22 03:33
--- NOTE | 2022-12-01 13:34 | Labor Flowsheet ---
Labor Flowsheet Datetime Report Generated by CPN: 12/01/2022 13:34 Datetime: 12/01/2022 09:00 VITAL SIGNS NBP Sys/Lani/Mean (mmHg): 118 : 72 : 81 Pulse: 75 Datetime: 12/01/2022 08:59 SpO2 (%): 100 Datetime: 11/29/2022 22:50 Stage of : Datetime: 11/29/2022 20:45 PAIN Pain Scale: 4 Pain Presence: Constant Pain Type: Cramping Pain Location: Abdomen Pain Relief Measures: Pain Medication Given Datetime: 11/29/2022 19:31 Membranes Ruptured Date/Time: 11/29/2022 10:23 Datetime: 11/29/2022 18:45 UTERINE ACTIVITY Monitor Mode: External Frequency (min): 2-4 Quality: Strong Duration (sec): 50-70 Pattern: Normal: <= 5 Contractions in 10 Minutes Resting Tone (Palpate): Relaxed ASSESSMENT A Monitor Mode: External US FHR Baseline Rate : 150 FHR Baseline Changes: No Baseline Change Variability: Moderate 6-25 bpm Accelerations: None Decelerations: Variable Category: Category II Oxygen Method: Room Air LaborFlag: Labor Datetime: 11/29/2022 18:15 Comments: FHR 140-160 in between pushing, deceleration down to the 70s with recovery Antiemetics/Antacids: Zofran (mg) @ 4 Pushing Position: Pushing Left Side Pushing Progress: Descent with Pushing Datetime: 11/29/2022 18:08 Temperature (C): 36.7 Datetime: 11/29/2022 17:32 Patient Position/Activity: Left Extreme Datetime: 11/29/2022 17:30 Contraction Comments: pushing with ctx Datetime: 11/29/2022 17:21 I/O Interventions: Ibanez Discontinued Datetime: 11/29/2022 17:20 Communication Comments: Mauricio Ellisdell WIRE PHOTO OPERATOR pediatrics and [facility] gonsalves cn WIRE PHOTO OPERATOR here while pt pushes Datetime: 11/29/2022 17:10 VAGINAL EXAM Dilatation (cm): 10.0 Effacement (%): 100 Station: 0 Exam by: dallas brina cnm STAGE 2 Pushing: Urge to Push Datetime: 11/29/2022 17:05 COMMUNICATION Communication: Provider at Bedside Datetime: 11/29/2022 16:53 Notification Reason: Status Update; Status; Labor Status Datetime: 11/29/2022 16:46 Vaginal Bleeding: Normal Show Stage 2 Comments: trial pushing ok by dallas brina. Datetime: 11/29/2022 16:45 Actions for Decelerations: Side to Side; Provider Notified Datetime: 11/29/2022 16:26 MEDICATIONS Pitocin (milliunits): Decreased to @ 8 Provider Notified (Name): Dallas Brina CNM Datetime: 11/29/2022 16:00 Monitor Interventions for UA: [place] Adjusted Datetime: 11/29/2022 15:18 Cervix, Consistency: Soft Cervix, Position: Anterior Datetime: 11/29/2022 15:01 Monitor Interventions for FHR: Ultrasound Adjusted Datetime: 11/29/2022 14:53 Patient Care Comments: rn at bedside Datetime: 11/29/2022 12:59 Anesthesia Level Check: T10- Umbilicus Datetime: 11/29/2022 10:23 Membrane Status: Ruptured Membranes Rupture Method: Artificial Amniotic Fluid Color: Heavy Meconium Amniotic Fluid Amount: Small Datetime: 11/29/2022 08:57 Pain Coping: Talking Through Contractions Datetime: 11/29/2022 08:07 Epidural Positioning: Sitting Epidural Procedure: Test Dose Datetime: 11/29/2022 07:53 PROCEDURE TIME OUT Procedure Verify: Correct Side and Site are Marked ANESTHESIA Anesthesia Plans: Local Datetime: 11/29/2022 07:46 Anesthesia Comments: provider at bedside for epidural replacement. Datetime: 11/29/2022 07:33 Epidural Procedure Other: Single Dose Datetime: 11/29/2022 07:29 Respirations: 17 Datetime: 11/29/2022 06:45 Pitocin Checklist: At Least 1 Acceleration of 15 bpm x 15 Seconds in 30 Minutes or Adequate Variabi lity; No More than 1 Late Deceleration Occurred in Past 30 Minutes; No More than 2 Variable Decelerat ions > 60 Seconds in Duration and decreasing >60 bpm in 30 minutes; No More than 5 Uterine Contractio ns in 10 Minutes for any 20 Minute Interval; Uterus Palpates Soft between Contractions Datetime: 11/29/2022 06:14 PATIENT CARE IV/Blood Work: IV Bolus Started Datetime: 11/28/2022 22:08 Medication Comments: Pitocin stopped per provider Brina. Pt. in [facility]
== END 2022-12-01 13:05 | disposition home or self-care (01) | DRG 805 ==
LOC: WFO 19:03 → FBP 19:05 → WFO 19:55 → FBP 19:56
PROVIDERS: ADMIT Nurse Practitioner Obstetrics & Gynecology; ATTEND Nurse Practitioner Obstetrics & Gynecology
PROC: 3E033VJ Introduction of Other Hormone into Peripheral Vein, Percutaneous Approach (ICD-10-PCS; principal; 2022-11-28)
PROC: 10E0XZZ Delivery of Products of Conception, External Approach (ICD-10-PCS; 2022-11-29)
PROC: 10907ZC Drainage of Amniotic Fluid, Therapeutic from Products of Conception, Via Natural or Artificial Opening (ICD-10-PCS; 2022-11-29)
DX: O48.0 Post-term pregnancy (principal); O88.23 Thromboembolism in the puerperium; Z37.0 Single live birth; Z3A.41 41 weeks gestation of pregnancy; O76 Abnormality in fetal heart rate and rhythm complicating labor and delivery; O77.0 Labor and delivery complicated by meconium in amniotic fluid; O90.89 Other complications of the puerperium, not elsewhere classified; R10.2 Pelvic and perineal pain; O99.214 Obesity complicating childbirth; E66.01 Morbid (severe) obesity due to excess calories
CPT/HCPCS: 36415; 85025; A9270; J7120

== ENCOUNTER 2023-02-05 13:50 | Outpatient (CLI) | payer MEDICAID ==
[2023-02-05] MEDS ORDERED: ALBUTEROL NEB 2.5 MG/3 ML INH ONE (14:57)
== END 2023-02-05 13:51 | disposition home or self-care (01) ==
LOC: RT 13:50
PROVIDERS: ATTEND Registered Nurse
DX: J45.909 Unspecified asthma, uncomplicated (principal)
CPT/HCPCS: 94060; 94729

== ENCOUNTER 2023-02-24 14:22 | Outpatient (CLI) | payer MEDICAID ==
[2023-02-25 08:31] VITALS: BP 128/78
--- NOTE | 2023-02-25 08:31 | SLEEP CARE CONSULTATION ---
Information from patient questionnaire entered by Winsome Chavarria. I have reviewed and concur with the information entered by Winsome Chavarria. This document represents the service I personally performed and the decisions made by me, Cindy Bryant MD, [facility]. History of Present Illness Service Date and Time: 02/24/2023 1422 Reason for Visit: New patient Chief Complaint: reports: Snoring, Observed pauses in breathing, Fatigue, Frequent awakenings at night Date of Onset: 10YRS Usual bedtime: 1030PM Time it takes to fall asleep: 3-5MIN Snores at night: Yes Observed to quit breathing while asleep: Yes Sleeps alone due to snoring: No Number of times waking at night: 5 Reasons for waking at night: reports: Choking, Other (UNKNOWN ) Toss, Turn, or Twitch while sleeping: Yes Recalls having dreams: Yes Usually gets out of bed at: 830-9AM Feels refreshed in the morning: Yes Morning headache: Yes (30-60MIN) Sleepy or fatigued during the day: Yes Ever fallen asleep while driving: No Takes day naps: Yes Dreams during day naps: Yes Prior sleep studies: Yes Year and Where: [id number] Additional HPI information: I have the pleasure of seeing Ms. Murray today regarding the possibility of her having obstructive sleep apnea. As you know, she is a 28-year-old lady who complains of loud snore, frequent awakenings, unrefreshed sleep, morning headache, and excessive daytime sleepiness. She was first diagnosed with obstructive sleep apnea-hypopnea in 2014 when she was 20 years old. She was prescribed a CPAP which she could not use. She tried several masks. She had another sleep study at [facility] in 2019 which confirmed the diagnosis. She was asked to restart the treatment. She was given a new memory card which she said was of the wrong size and, therefore, did not try to use her CPAP. She showed me the card and it is a regular SD card with Ben Respironics logo on it (her machine is Respironics System One). She would like to discuss alternative treatment options including the advertisement she saw on the TV about the Inspire therapy (hypoglossal nerve stimulation). - Parasomnia Symptoms Ever been unable to move upon waking from sleep: Yes Walks in sleep: No Talks in sleep: Yes Ever acted out dreams in sleep: No Ever felt weak in the knees when startled or emotional: No Bothered by creepy, crawly, restless sensations in legs: Yes Problems with memory or concentration: Yes Subjective Initial [place] Sleepiness Scale score: 10 (02/24/23) Past Medical History Past Medical History: reports: Arthritis, Anemia, Anxiety, Asthma, Depression, GERD Social History The patient's occupation is a [employer]. Patient is Single and lives in [place]. Have you smoked in the past 12 months: No Alcohol use: Yes Alcohol amount and frequency: A SHOT IN A MIX DRINK EVERY FEW MONTHS Caffeine use: Yes Caffeine amount and frequency: A CAN OF SODA 2-3X A WEEK Family History Family history of sleep disordered breathing: Yes Family Hx Sleep Apnea: Mother: Sleep apnea - Treated, Father: Snoring, Sleep apnea - Treated, Sibling: Snoring Allergies and Home Medications Known drug allergies: Yes (SEE LIST) Drug allergies reviewed: Yes Home medication list reviewed: Yes Allergy and home medication list: Allergies dextromethorphan [From NyQuil] Allergy (Verified 02/21/23 14:24) Hives doxylamine [From NyQuil] Allergy (Verified 02/21/23 14:24) Hives menthol Allergy (Verified 02/21/23 14:24) Rash pseudoephedrine [From DayQuil Sinus Pressure/Pain] Allergy (Verified 02/21/23 14:24) Hives Review of Systems Weight gain over past 5 years: 56 Cardiovascular: reports: chest pain, other (SINUS BRADYCARDIA SHORT DE SYNDROME) Respiratory: reports: shortness of breath, chronic cough Gastrointestinal: reports: heartburn, nausea Urinary: denies: incontinence, frequency, urgency, impotence, other Neurological: reports: headaches, head trauma Psychiatric: reports: anxiety, depression, other (AUTISTIC) Ear/Nose/Throat: reports: sinus problems Endocrine: reports: unexplained weakness Musculoskeletal: reports: neck pain, back pain Immunologic: reports: sneezing, itching Physical Exam Vital signs obtained and entered by: WINSOME Luevano MA Blood Pressure: 128/78 (LEFT ARM) Cuff size: long Heart Rate: 86 O2 Saturation: 100 Height: 5 ft 7 in Weight: 277 lb 12.8 oz Body Mass Index: 43.4 BMI Classification: Morbidly Obese Neck circumference: 16.5 Mood/affect: Normal HEENT: No craniofacial malformation Nostrils: patent to airflow Turbinates: normal Septum: midline Mouth and throat: narrow oropharynx Soft palate: long Hard palate: normal Uvula: normal Uvula visualization: 50% Mallampati Class II Tongue: normal in size Tonsils: small Chin and jaw: normal size and position Neck: normal w/o lymphadenopathy or thyromegaly Extremities: no edema or clubbing Neurologic: intact Impression and Plan IMPRESSION: 1. Obstructive Sleep Apnea-Hypopnea Syndrome, as previously diagnosed. The severity is unknown as we do not have her records from [place]. She does not want to use the CPAP. Alternative treatment options are all dependent on the severity. Therefore, an in-laboratory polysomnography will be ordered to determine the severity of the sleep-related breathing disorder. The patient requested a home sleep apnea test (HSAT) because she has an and cannot leave her with her overnight. Plan: 1. Schedule a home sleep apnea test (HSAT). 2. Avoid long distance driving or when feeling sleepy. 3. Avoid alcohol, sedative and muscle relaxant around bedtime. 4. Attempt to lose weight. 5. Return for follow up after the test. Counseling Topics: Weight control Follow up with Sleep Care in: 1-2 months Plan: HST Visit Type: In Office Time Spent with Patient (minutes): 15 Provider Statement: I spent 100% of the Face to Face Visit with the patient with greater than 50% spent counseling the patient and coordination of care.
== END 2023-02-24 14:23 | disposition home or self-care (01) ==
LOC: SC 14:22
PROVIDERS: ATTEND Internal Medicine Pulmonary Disease
DX: G47.33 Obstructive sleep apnea (adult) (pediatric) (principal); E66.01 Morbid (severe) obesity due to excess calories; Z68.41 Body mass index [BMI] 40.0-44.9, adult
CPT/HCPCS: 99202; 99212

== ENCOUNTER 2023-04-10 15:23 | Outpatient (CLI) | payer MEDICAID | END 2023-04-10 15:24 | disposition home or self-care (01) | LOC: SC 15:23 | PROVIDERS: ATTEND Internal Medicine Pulmonary Disease | DX: R09.02 Hypoxemia (principal) | CPT/HCPCS: 95806 ==

== ENCOUNTER 2023-04-21 15:14 | Outpatient (CLI) | payer MEDICAID ==
--- NOTE | 2023-04-21 12:28 | SLEEP CARE CONSULTATION ---
Information from patient questionnaire entered by Winsome Chavarria. I have reviewed and concur with the information entered by Winsome Chavarria. This document represents the service I personally performed and the decisions made by me, Cindy Bryant MD, [facility]. History of Present Illness Service Date and Time: 04/21/2023 1140 Initial [place] Sleepiness Scale score: 10 (02/24/23) Current [place] Sleepiness Scale score: 13 (04/21/23) Additional HPI information: Ms. Murray was called for a follow up of the home sleep apnea test (HSAT) she had on 04/10/23. The test showed no significant sleep disordered breathing, with an AHI of 2.3/hr and yesenia SaO2 of 88%. During the study, the patient had 6 apneas (6 obstructive, 0 central, 0 mixed) and 11 hypopneas. The longest episode lasted 83.0 seconds. The patient slept almost exclusively in non-supine positions (supine AHI was 2.4 and non-supine, 2.25). Hypoxemia was minimal, with the lowest oxygen saturation of 88 % and 1.6 minutes with SaO2 under 90%. Baseline oxygen saturation was normal (Average oxygen saturation was 95%). The patient was informed of these findings. I explained to her that she did not have significant sleep-disordered breathing during the home sleep apnea test (HSAT). Sleep Study - Results Type of Sleep Study: Home sleep study (COMPLETED 04/10/23) Prior sleep studies: Yes Year and Where: 2014 Allergies and Home Medications Drug allergies reviewed: Yes Home medication list reviewed: Yes Allergy and home medication list: Allergies dextromethorphan [From NyQuil] Allergy (Verified 04/21/23 08:56) Hives doxylamine [From NyQuil] Allergy (Verified 04/21/23 08:56) Hives menthol Allergy (Verified 04/21/23 08:56) Rash pseudoephedrine [From DayQuil Sinus Pressure/Pain] Allergy (Verified 04/21/23 08:56) Hives Review of Systems Review of systems same as previous: Yes Physical Exam Vital signs obtained and entered by: WINSOME Luevano MA Height: 5 ft 7.5 in (PER PT) Weight: 270 lb (PER PT) Body Mass Index: 41.6 BMI Classification: Morbidly Obese Impression and Plan IMPRESSION: 1. Obstructive Sleep Apnea-Hypopnea Syndrome, not demonstrated during the home sleep apnea test. This is probably because the patient did not sleep supine. The patient confirms that she does not usually sleep on her back. Therefore, she may use her CPAP on as needed basis. PLAN: 1. Avoid sleeping supine. 2. Attempt to lose weight. 3. Return for a follow up on as needed basis. Counseling Topics: Sleeping position, Weight control Follow up with Sleep Care in: as needed Visit Type: Telehealth Video Video Type: [place] Patient Location: Home Location of Provider: Office Patient agrees and consents to this telehealth visit type: Yes Patient agrees to have their insurance billed: Yes Time Spent with Patient (minutes): 15 Provider Statement: I spent 100% of the Telehealth Video Call with the patient with greater than 50% spent counseling the patient and coordination of care.
== END 2023-04-21 15:15 | disposition home or self-care (01) ==
LOC: SC 15:14
PROVIDERS: ATTEND Internal Medicine Pulmonary Disease
DX: G47.33 Obstructive sleep apnea (adult) (pediatric) (principal); E66.01 Morbid (severe) obesity due to excess calories; Z68.41 Body mass index [BMI] 40.0-44.9, adult

== ENCOUNTER 2023-04-25 15:49 | Outpatient (CLI) | payer MEDICAID ==
[2023-04-25 16:04] LABS: BASOPHILS # (AUTO) 0.1 10^3/uL (0.0-0.1); BASOPHILS % (AUTO) 0.5 %; EOSINOPHILS # (AUTO) 0.1 10^3/uL (0.0-0.7); EOSINOPHILS % (AUTO) 1.2 %; HCT - HEMATOCRIT 37.8 % (37.0-47.0); HGB - HEMOGLOBIN 12.5 g/dL (12.0-16.0); LYMPHOCYTES # (AUTO) 2.2 10^3/uL (1.5-3.5); LYMPHOCYTES % (AUTO) 19.5 %; MEAN CORPUSCULAR HGB CONC 33.1 g/dL (32.0-36.0); MEAN CORPUSCULAR VOLUME 84.6 fL (81.0-99.0); MONOCYTES # (AUTO) 0.9 10^3/uL (0.0-1.0); MONOCYTES % (AUTO) 7.6 %; NEUTROPHILS # (AUTO) 7.9 10^3/uL (1.5-6.6); NEUTROPHILS % (AUTO) 70.7 %; PLT - PLATELET COUNT 262 10^3/uL (130-450); RED BLOOD COUNT 4.47 10^6/uL (4.20-5.40); RED CELL DISTRIBUTION WIDTH 13.6 % (12.0-15.0); WHITE BLOOD COUNT 11.2 x10^3/uL (4.8-10.8)
--- NOTE | 2023-04-25 17:45 | Ultrasound Report ---
PROCEDURE: Pelvic w/Transvaginal INDICATIONS: EXCESSIVE MENSTRATION TECHNIQUE: Real-time scanning was performed of the pelvic organs, with image documentation. Additional endovagi nal scanning was necessary due to incomplete visualization of the adnexal and endometrial structures by transabdominal scanning. COMPARISON: Pelvic ultrasound 08/02/2021 FINDINGS: Uterus: Uterus is anteverted and normal in size at 8.9 x 4.1 x 5.9 cm. The myometrium is homogeneou s. The endometrium measures 10 mm in combined thickness. Ovaries: The right ovary measures 3.8 x 2.7 x 2.2 cm, with a calculated ovarian volume of 12 cc. Th e left ovary measures 3.4 x 2.6 x 2.8 cm, with a calculated ovarian volume of 12 cc. The ovaries hav e a normal sonographic appearance. Less than 12 follicles can be seen in each ovary. No adnexal mas ses are seen. No cystic lesions measuring greater than 3 cm. Other: No pathologic free abdominal or pelvic fluid. IMPRESSION: Endometrium is within normal limits for thickness without a focal lesion or abnormal vascularity iden tified sonographically. Reviewed by: Jonathan Agarwal MD on 04/25/2023 5:44 PM PDT Approved by: Jonathan Agarwal MD on 04/25/2023 5:44 PM PDT Station ID: [id number]
== END 2023-04-25 15:50 | disposition home or self-care (01) ==
LOC: DI 15:49
PROVIDERS: ATTEND Nurse Practitioner Obstetrics & Gynecology
DX: N92.1 Excessive and frequent menstruation with irregular cycle (principal)
CPT/HCPCS: 36415; 85025

== ENCOUNTER 2023-07-31 14:02 | Outpatient (CLI) | payer MEDICAID ==
[2023-07-31 14:11] LABS: BASOPHILS # (AUTO) 0.1 10^3/uL (0.0-0.1); BASOPHILS % (AUTO) 0.7 %; EOSINOPHILS # (AUTO) 0.1 10^3/uL (0.0-0.7); EOSINOPHILS % (AUTO) 1.4 %; HCT - HEMATOCRIT 38.3 % (37.0-47.0); HGB - HEMOGLOBIN 12.5 g/dL (12.0-16.0); LYMPHOCYTES # (AUTO) 2.2 10^3/uL (1.5-3.5); LYMPHOCYTES % (AUTO) 23.1 %; MEAN CORPUSCULAR HEMOGLOBIN 27.5 pg (27.0-31.0); MEAN CORPUSCULAR HGB CONC 32.6 g/dL (32.0-36.0); MEAN CORPUSCULAR VOLUME 84.2 fL (81.0-99.0); MEAN PLATELET VOLUME 9.1 fL (7.9-10.8); MONOCYTES # (AUTO) 0.6 10^3/uL (0.0-1.0); MONOCYTES % (AUTO) 6.5 %; NEUTROPHILS # (AUTO) 6.4 10^3/uL (1.5-6.6); PLT - PLATELET COUNT 263 10^3/uL (130-450); RED BLOOD COUNT 4.55 10^6/uL (4.20-5.40); RED CELL DISTRIBUTION WIDTH 13.2 % (12.0-15.0); WHITE BLOOD COUNT 9.5 x10^3/uL (4.8-10.8)
== END 2023-07-31 14:03 | disposition home or self-care (01) ==
LOC: LAB 14:02
PROVIDERS: ATTEND Registered Nurse
DX: D72.829 Elevated white blood cell count, unspecified (principal)
CPT/HCPCS: 36415; 85025